=== PATIENT | female | born 1980 | race Caucasian/White ===

== ENCOUNTER 2023-01-30 10:55 | Outpatient (CLI) | payer OTHER, SELFPAY ==
[2023-01-30] VITALS (37 sets, daily range): BP systolic 136–242; BP diastolic 80–133; PULSE 83–108; RESP 16–22; TEMP 36.8–37.1; O2SAT 93–98
--- NOTE | 2023-01-30 11:07 | ED.NURSE ---
Pt immediately brought to OB prior to rooming.
[2023-01-30] MEDS: LABETALOL HCL 5 MG/ML inj IVP ×3 (11:31→12:03)
[2023-01-30] MEDS: MAGNESIUM IV 4 GM/100 ML PIGGYBACK IVPB (11:32)
[2023-01-30] MEDS: LACTATED RINGERS 1000 ML 1,000 ML 75 ML IV (11:34)
[2023-01-30 11:38] LABS: Hematocrit 37.7 % (33.0-51.0); Hemoglobin* 12.7 gm/dL (12.0-16.0); Mean Corpuscular HGB Conc 34 gm/dL (32-36); Mean Corpuscular Hemoglobin 30 pg (26-34); Mean Corpuscular Volume 88 fL (80-100); Platelet Count* 127 K/uL (140-440); Red Blood Count 4.29 m/uL (4.00-5.20); White Blood Count* 14.91 K/uL (4.50-11.00)
[2023-01-30 11:39] LABS: Slide Review Reflex No
[2023-01-30] MEDS: BETAMETHASONE SOD PHOS/ACETATE 6 MG/ML ML 12 MG IM (11:40)
[2023-01-30 12:00] LABS: Creatinine* 0.8 mg/dL (0.5-1.5); Estimated Glomerular Filt Rate 95 ml/min
[2023-01-30 12:01] LABS: Alanine Aminotransferase* 95 U/L (4-35); Aspartate Amino Transferase* 118 U/L (12-35); Blood Urea Nitrogen* 17 mg/dL (5-24)
--- NOTE | 2023-01-30 12:05 | P.OBLDTN_ITS ---
OB - Triage/Final Diagnosis Visit Information Time Seen by Provider: 12:05 Date Seen: 01/30/23 Narrative: Carlota is a 42 year old 2 para 1001 at 27.0 weeks gestation by IVF transfer day. Patient reports that her due date is 05/01/2023. Carlota was feeling unwell and short of breath this AM so she decided to take her BP with her husbands BP cuff and reports blood pressure persistently in the 180-200/100s. She presents to the ED with the initial blood pressure of to 221/133. She was immediately transferred to L&D and her blood pressure on L&D was 244/129. IV antihypertensive protocol was initiated. She was put on magnesium sulfate for seizure prophylaxis. HELLP labs drawn. BMZ series initiated. Patient gets her care at [facility] and was planning on delivering at [facility]. Thus, I have no medical information on her. Patient reports that she's had an uncomplicated course thus far. She is on low dose aspirin for pre-eclampsia prevention but otherwise she does not have any other diagnosis. She's reports never being diagnosed with chronic hypertension, gestational hypertension or pre-eclampsia in her last . Her last was 11 years ago. Denies history of asthma, diabetes or heart disease. This is an IVF surrogate . Obstetrically, she reports active movement. Denies Ctx, LOF, vaginal bleeding or abnormal vaginal discharge. Denies any persistent headache, vision changes, right upper quadrant/epigastric pain. Her shortness of breath has resolved since being here. She report she's been having worsening lower extremity edema for a couple of weeks. I spoke with the perinatologist and local tanker truck driver on-call at [facility] about request of transfer as we do not have an antepartum service and are unable to care for baby that are less than 35 weeks. Transfer was accepted by Dr. Esquivel. Currently working on decreasing her BP to below severe ranging. Evaluation Laboratory results: Laboratory Tests 01/30/23 Range/Units 11:27 WBC 14.91 H (4.50-11.00) K/uL RBC 4.29 (4.00-5.20) m/uL Hgb 12.7 (12.0-16.0) gm/dL Hct 37.7 (33.0-51.0) % MCV 88 (80-100) fL MCH 30 (26-34) pg MCHC 34 (32-36) gm/dL Plt Count 127 L (140-440) K/uL BUN Pending Creatinine Pending Estimated GFR Pending AST Pending ALT Pending Vital signs: Vital Signs - 24 hr 01/30/23 10:58 01/30/23 11:13 01/30/23 11:15 Temperature 98.8 F Pulse Rate 83 Pulse Rate [Right Pulse Oximeter] 95 Respiratory Rate 22 Blood Pressure 242/129 H Blood Pressure [Right Upper Arm] 221/133 H Pulse Oximetry 98 98 Oxygen Delivery Method Room Air 01/30/23 11:20 01/30/23 11:25 01/30/23 11:29 Temperature Pulse Rate 100 Pulse Rate [Right Pulse Oximeter] Respiratory Rate Blood Pressure 227/131 H Blood Pressure [Right Upper Arm] Pulse Oximetry 98 97 Oxygen Delivery Method 01/30/23 11:30 01/30/23 11:35 01/30/23 11:40 Temperature Pulse Rate Pulse Rate [Right Pulse Oximeter] Respiratory Rate Blood Pressure Blood Pressure [Right Upper Arm] Pulse Oximetry 98 96 95 Oxygen Delivery Method 01/30/23 11:41 01/30/23 11:42 01/30/23 11:45 Temperature Pulse Rate 85 Pulse Rate [Right Pulse Oximeter] Respiratory Rate Blood Pressure 204/106 H Blood Pressure [Right Upper Arm] Pulse Oximetry 94 95 Oxygen Delivery Method 01/30/23 11:48 01/30/23 11:50 01/30/23 11:52 Temperature Pulse Rate 91 Pulse Rate [Right Pulse Oximeter] Respiratory Rate Blood Pressure 187/95 H Blood Pressure [Right Upper Arm] Pulse Oximetry 93 96 Oxygen Delivery Method 01/30/23 11:53 01/30/23 11:55 01/30/23 12:00 Temperature Pulse Rate Pulse Rate [Right Pulse Oximeter] Respiratory Rate Blood Pressure Blood Pressure [Right Upper Arm] Pulse Oximetry 93 96 94 Oxygen Delivery Method 01/30/23 12:00 01/30/23 12:02 Temperature Pulse Rate 91 Pulse Rate [Right Pulse Oximeter] Respiratory Rate Blood Pressure 183/97 H Blood Pressure [Right Upper Arm] Pulse Oximetry 96 Oxygen Delivery Method Comments: Physical exam: General: Tearful and nervous. Psych: Alert and oriented x4, full affect HEENT: Normocephalic, atraumatic Neck: No cervical adenopathy, no thyromegaly Heart: Regular rate and rhythm, no murmur rub or gallop Lungs: Clear to auscultation bilaterally Abdomen: Gravid, soft, no tenderness, rebound, or guarding Skin: No lesions or rashes Lower extremities: 3+ lower extremity edema bilaterally Pelvic exam: Deferred Final Diagnosis (1) HELLP (hemolytic anemia/elev liver enzymes/low platelets in ), an tepartum: Status: Acute Problem details: PreEwSF/HELLP The patient has HELLP based on severe ranging blood pressures, ALT and AST twice the upper limit of normal, and thrombocytopenia. We discussed complications to the mother from the disease including risk of stroke, seizure, worsening hypertension, and abruption. We also addressed risks to the fetus including the risk of FGR, delivery, oligohydramnios, and abruption.?I explained to the patient that although immediate delivery will cure the disease of HELLP, it will impose the risks of prematurity on the . As gestational age progresses, the risks to the will decrease.? The goal of management will be to properly identify the time when the risks to the mother of staying are outweighed by the risks of prematurity. I anticipate that she will remain hospitalized for the remainder of the . Given that we do not have an antepartum service and would not be able to care for baby less than 35 weeks, she will be transferred to a tertiary care center. Will transfer [facility], which is where she was intending to deliver. ? BPs 221/133, 244/129, 227/131, 204/106, 187/95, 183/97, 181/111, 176/98, 178/94, 176/94, 182/100, 169/89, 154/90 ? Symptoms [headaches, visual disturbances, shortness of breath or abdominal pain, Asx, headache resolved with Esgic, etc] ? Magnesium: on Magnesium for seizure ppx ? IV antihypertensives: Labetalol 20mg, 40mg, 80 mg, and 80 mg. Hydralazine 20 mg x2. ? Pre-eclampsia labs on 01/30/23: Hgb 12.7 Plt 127 Cr 0.8 ALT 95 AST 118. P/C ratio = 2.80 - Coags: INR 0.93, APTT 30, Fibrinogen 498 Wellbeing NST: Baseline 145 bpm, moderate variability, rare small variable decelerations that spontaneously resolves, overall AGA [place]: Quiescent
[2023-01-30] MEDS: HYDRALAZINE HCL 20 MG/ML inj 10 MG IVP (12:19)
[2023-01-30 12:36] LABS: INR 0.93 (0.91-1.10)
[2023-01-30 12:37] LABS: Fibrinogen* 498 mg/dL (200-450); Partial Thromboplastin Time* 30 Seconds (23-33)
[2023-01-30] MEDS: HYDRALAZINE HCL 20 MG/ML inj IVP (12:51)
[2023-01-30] MEDS: LABETALOL HCL 5 MG/ML inj 80 MG IVP (13:12)
[2023-01-30 13:19] LABS: Creatinine Urine 502.9 mg/dL; Total Protein Urine 1439 mg/dL
--- NOTE | 2023-01-30 15:43 | PC.OBNST ---
NST Note NST Note Start: 01/30/23 15:38 Freq: ONCE Status: Active Protocol: Document 01/30/23 15:41 AVL (Rec: 01/30/23 15:43 AVL [id number]) NST Note 2 Para (# of births) 1 EDC 05/01/23 Gestational Age In Weeks & Days 27 Weeks & 0 Days Patient Presented with Complaint(s) of Other Other Complaints presented with severe high blood pressures and chest pain to the ED Reactive Yes Appropriate for Gestational Age Yes RN Helder Martinez RN Date 01/30/23 Reactive Yes Appropriate for Gestational Age Yes COLE Waldron RN Date 01/30/23 OB NST charge Yes Complete NST Note via Write Note Yes The provider's electronic signature indicates the NST is reactive/appropriate for gestational age. *Note to provider: If an addendum is required, open the patient's chart and click on the note under the Nurse/Allied Health tab.
== END 2023-01-30 14:12 | disposition home or self-care (01) ==
LOC: ED 11:08 → OB 11:10 → OB OUT 02-01 13:34 → OB 02-08 09:35
PROVIDERS: Emergency Provider Family Medicine; Visit Provider Obstetrics & Gynecology
DX: O14.20 HELLP syndrome (HELLP), unspecified trimester (principal); Z3A.27 27 weeks gestation of pregnancy
CPT/HCPCS: 36415; 59025; 82565; 82570; 84156; 84450; 84460; 84520; 85027; 85384; 85610; 85730; G0463; A0425; A0427; J0360; J0702; J3475; J7120